=== PATIENT | male | born 1970 | race Caucasian/White ===

== ENCOUNTER 2017-10-22 05:45 | Day surgery (SDC) | payer OTHER ==
[~2017-10-22] VITALS: Ht 170.2 cm; Wt 68.2 kg
[2017-10-22] MEDS ORDERED: EPINEPHrine 1:1,000 [1 MG/ML] AMP SQ ONE (05:46)
[2017-10-22] MEDS ORDERED: LIDOCAINE HCL 2% 30 ML JELLY TP ONE (05:46)
[2017-10-22] MEDS ORDERED: LIDOCAINE HCL 4% 50 ML SOLUTION TP ONE (05:46)
[2017-10-22] MEDS ORDERED: BENZOCAINE 20% 50 MCG/SPRAY 57 GM TP ONE (05:46)
[2017-10-22] MEDS ORDERED: SODIUM CHLORIDE 0.9% 1,000 ML IV ONE ×2 (05:52→07:00)
[2017-10-22] MEDS ORDERED: PSEU60TA21 PO (07:07)
[2017-10-22] MEDS ORDERED: PANT40TA25 PO (07:07)
[2017-10-22] MEDS ORDERED: AZEL137S8 NS (07:07)
[2017-10-22] MEDS ORDERED: MONT10TA21 PO (07:07)
[2017-10-22] MEDS ORDERED: PRED10 PO (07:07)
[2017-10-22] MEDS ORDERED: GLYC10.7 PO (07:07)
[2017-10-22] MEDS ORDERED: DICY20 PO (07:07)
[2017-10-22] MEDS ORDERED: TIOT4MIS2 PO (07:07)
[2017-10-22] MEDS ORDERED: FentaNYL CITRATE-PF 100 MCG/2 ML VIAL ONE (07:46)
[2017-10-22] MEDS ORDERED: MIDAZOLAM HCL 2 MG/2 ML VIAL ONE (07:46)
[2017-10-22] MEDS ORDERED: MethylPREDNISolone SOD SUCC 125 MG/2 ML VIAL IVP ONE (08:45)
[2017-10-22] MEDS ORDERED: MethylPREDNISolone SOD SUCC 125 MG/2 ML VIAL ONE (08:59)
[2017-10-22] MEDS ORDERED: OXYGEN THERAPY IH SCH (20:00)
== END 2017-10-22 10:05 | disposition home or self-care (01) ==
LOC: SURGERY 05:45
PROVIDERS: ATTEND Internal Medicine Critical Care Medicine
DX: J38.4 Edema of larynx (principal); B37.0 Candidal stomatitis; F17.210 Nicotine dependence, cigarettes, uncomplicated; J45.998 Other asthma; Z98.890 Other specified postprocedural states; Z79.899 Other long term (current) drug therapy; Z85.118 Personal history of other malignant neoplasm of bronchus and lung
CPT/HCPCS: 31623; 31624; 71045; 87015; 87070; 87205; 87206; 87220; 88108; 88312; J0171; J2250; J2930; J3010; J7030